=== PATIENT | male | born 1995 | race Two or more races ===

== ENCOUNTER 2023-02-11 07:26 | Day surgery (SDC) | payer OTHER ==
[2023-02-04 13:53] LABS: HEMATOCRIT 36.3 % (39.0-48.0); HEMOGLOBIN 12.1 g/dL (13-16.00); MEAN CELL VOLUME 85.3 fL (80.0-100.00); MEAN CORPUSCULAR HEMOGLOBIN 28.4 pg (27.00-32.0); MEAN CORPUSCULAR HGB CONC 33.3 g/dl (32.0-36.0); PLATELET COUNT 229 K/uL (150-450); RED BLOOD COUNT 4.26 M/uL (4.00-6.00); RED CELL DISTRIBUTION WIDTH 15.3 % (11.5-14.5)
[2023-02-04 14:19] LABS: INR 1.06; PROTHROMBIN TIME 11.1 SECONDS (9.0-11.5)
[2023-02-04 14:48] LABS: ALBUMIN 3.7 gm/dL (3.4-5.0); BILIRUBIN TOTAL 0.22 mg/dL (0.3-1.2); CALCIUM 9.2 mg/dL (8.5-10.1); CREATININE SERUM 0.53 mg/dL (0.70-1.30); GFR 187.93; GLOBULINA 3.6 G/DL (2.4-3.5); POTASSIUM 4.27 mEq/L (3.5-5.1); TOTAL PROTEIN 7.3 gm/dL (6.4-8.2)
[~2023-02-11 07:26] MED LIST: ADDERALL 20 MG20 MG PO; CLONAZEPAM0.5 MG PO; LAMICTAL150 M1 PO; RISPERDAL1 MG PO; TRAZODONE HCL150 MG PO
== END 2023-02-11 15:00 | disposition home or self-care (01) ==
LOC: CIR.AMB 07:26
PROVIDERS: ATTEND Colon & Rectal Surgery
DX: L05.01 Pilonidal cyst with abscess (principal); Z20.822 Contact with and (suspected) exposure to COVID-19

== ENCOUNTER 2023-03-21 09:33 | Emergency (ER) | payer OTHER ==
[~2023-03-21] VITALS: Ht 162.6 cm; Wt 71.7 kg
[2023-03-21] MEDS ORDERED: ZYRTEC10 MG PO (10:18)
== END 2023-03-21 10:49 | disposition home or self-care (01) ==
LOC: ER 09:33
DX: Z48.02 Encounter for removal of sutures (principal)